=== PATIENT | female | born 1980 | race Caucasian/White ===

== ENCOUNTER 2022-06-27 07:44 | Outpatient (CLI) | payer OTHER, SELFPAY ==
[2022-06-27 10:05] LABS: Albumin* 4.5 g/dL (3.3-5.0)
[2022-06-27 10:06] LABS: Chloride* 110 mmol/L (96-114); Potassium* 4.4 mmol/L (3.6-5.1); Sodium* 140 mmol/L (135-149)
[2022-06-27 10:08] LABS: Aspartate Amino Transferase* 41 U/L (12-35); Bilirubin Total* 0.3 mg/dL (0.1-1.5); Blood Urea Nitrogen* 15 mg/dL (5-24); Carbon Dioxide* 22 mmol/L (20-32); Cholesterol* 203 mg/dL (90-199); Creatinine* 0.8 mg/dL (0.5-1.5); Estimated Glomerular Filt Rate 94 ml/min; Total Protein* 7.1 g/dL (6.0-8.3)
[2022-06-27 10:09] LABS: Alanine Aminotransferase* 41 U/L (4-35); Alkaline Phosphatase* 58 U/L (40-150); Calcium* 9.4 mg/dL (8.4-10.6); Glucose* 112 mg/dL (60-115); HDL Cholesterol* 51 mg/dL (>=50); LDL Cholesterol Calculated 118 mg/dL (<100); Triglycerides* 168 mg/dL (40-149)
== END 2022-06-27 07:45 | disposition home or self-care (01) ==
PROVIDERS: PCP Family Medicine; Visit Provider Family Medicine
DX: R74.8 Abnormal levels of other serum enzymes (principal); E78.5 Hyperlipidemia, unspecified
CPT/HCPCS: 80053; 80061

== ENCOUNTER 2022-09-11 13:49 | Outpatient (CLI) | payer OTHER, SELFPAY ==
--- NOTE | 2022-09-11 14:00 | CRLHL7_ITS ---
For Patients: As a result of the Century Cures Act, medical imaging exams and procedure reports are released immediately into your electronic medical record. You may view this report before your referring provider. If you have questions, please contact your health care provider. BILATERAL SCREENING MAMMOGRAM WITH COMPUTER-AIDED DETECTION TECHNIQUE: CC and MLO views were obtained. These mammographic images have been obtained using full-field digital technique. These mammographic images were interpreted with the benefit of computer-aided detection. COMPARISON FILM: 11/28/20, 11/26/19. FINDINGS: The breasts are heterogeneously dense, which may obscure small masses. IMPRESSION: There is no radiographic evidence for malignancy. ASSESSMENT: BI-RADS Category 1: Negative RECOMMENDATION: Routine screening mammogram in 1 year. A lay language report of this examination will be provided to the patient. JOE JESUS M.D. Diagnostic/Nuclear Medicine Radiologist [email or web address] [email or web address]:aden Transcribed: 09/12/2022, 2:[address]/Dictated by: Joe Jesus MD @ 09/12/2022 10:01:00 AM (Electronically Signed)
== END 2022-09-11 13:50 | disposition home or self-care (01) ==
LOC: MAMMO 13:50
PROVIDERS: PCP Family Medicine; Visit Provider Family Medicine
DX: Z12.31 Encounter for screening mammogram for malignant neoplasm of breast (principal); R92.2 Inconclusive mammogram
CPT/HCPCS: 77067

== ENCOUNTER 2023-07-30 08:15 | Outpatient (CLI) | payer OTHER, SELFPAY | END 2023-07-30 08:16 | disposition home or self-care (01) | LOC: NFLDREF 07-31 07:09 | PROVIDERS: PCP Family Medicine; Referring Provider Family Medicine; Visit Provider Family Medicine | DX: E78.5 Hyperlipidemia, unspecified (principal) | CPT/HCPCS: 80053; 80061 ==

== ENCOUNTER 2024-02-04 15:44 | Outpatient (CLI) | payer OTHER, SELFPAY ==
--- OUTSIDE RECORDS SUMMARY | 2024-02-04 15:46 | XMS_ITS | Clinical Summary ---
Author Organization [facility] Address [place], [place] [address] Care Team Providers Care Ship Scraper Name Role Phone Josiane Wilson MD Primary Care Provider + Allergies No known active allergies Medications No known medications Social History Tobacco Use Types Packs/Day Years Used Date Smoking Tobacco: Never Sex and Gender Information Value Date Recorded Sex Assigned at Not on file Gender Identity Not on file Sexual Orientation Not on file Obstetrics History Last Filed Vital Signs Vital Sign Reading Time Taken Comments Blood Pressure 96/62 11/06/2016 2:47 PM CDT Pulse 73 11/06/2016 2:47 PM CDT Temperature - - Respiratory Rate - - Oxygen Saturation 97% 11/06/2016 2:47 PM CDT Inhaled Oxygen Concentration - - Weight 70.9 kg (156 lb 6.4 oz) 11/06/2016 2:47 P M CDT Height - - Body Mass Index - - Plan of Treatment Health Maintenance Due Date Last Done Comments Tdap 1990 Depression screening for age 12+ 1991 HIV for age 15-65 1994 BMI (ht and wt on same day) for age 18+ 1997 Hepatitis C screening for age 18-79 1997 Tetanus booster 1999 COVID-19 vaccine series (2022- season) 2024 Influenza for age 9-49 01/19/2024 Pap test for age 21-65 06/27/2025 3, 06/27/2022, 11/02/2016, Additional history exists Pneumococcal series for age 6-64 Aged Out No longer eligible based on patient's age to complete this topic Procedures Procedure Name Priority Date/Time Associated Diagnosis Comments HPV HIGH RISK Routine 06/27/2022 12:00 PM PRN OCCUPATIONAL THERAPIST from Last 3 Months or Most Recently Relevant to Health Maintenance Results * HPV HIGH RISK (06/27/2022 12:00 PM PRN OCCUPATIONAL THERAPIST) TYPE 16 Negative Negative 06/29/2022 3:12 PM PRN OCCUPATIONAL THERAPIST [facility] TYPE 18 Negative Negative 06/29/2022 3:12 PM PRN OCCUPATIONAL THERAPIST [facility] OTHER HIGH RISK TYPES Negative Negative 06/29/2022 3:12 PM PRN OCCUPATIONAL THERAPIST [facility] Other (Cervical/Vagina l) 06/27/2022 12:00 PM PRN OCCUPATIONAL THERAPIST 06/27/2022 6:08 PM PRN OCCUPATIONAL THERAPIST Narrative [facility] - 06/29/2022 3:12 PM PRN OCCUPATIONAL THERAPIST HPV types 16, 18, 31, 33, 35, 39, 45, 51, 52, 56, 58, 59, 66 and 68 DNA were undetectable or below the pre-set threshold. Methodology: Juan Diego Vadim 4800 HPV Test Josiane Wilson MD MICROBIOLOGY [facility] [address] [place] [address], from Last 3 Months or Most Recently Relevant to Health Maintenance Care Teams Ship Scraper Relationship Specialty Start Date End Date Josiane Wilson MD [address] [place] [address] PCP - General Family Practice 11/06/16
--- NOTE | 2024-02-04 16:00 | CRLHL7_ITS ---
For Patients: As a result of the Century Cures Act, medical imaging exams and procedure reports are released immediately into your electronic medical record. You may view this report before your referring provider. If you have questions, please contact your health care provider. BILATERAL DIGITAL SCREENING MAMMOGRAM WITH COMPUTER-AIDED DETECTION AND TOMOSYNTHESIS CLINICAL HISTORY: Routine screening exam. COMPARISON: 09/11/2022, 12/02/2020, 11/28/2020, 11/26/2019. TECHNIQUE: Digital mammogram in CC and MLO projections including computer-aided detection (CAD). Tomosynthesis was used in this interpretation. BREAST COMPOSITION: There are scattered areas of fibroglandular density. FINDINGS: RIGHT Breast: No suspicious findings. LEFT Breast: Focal asymmetric density upper outer quadrant 7 cm from the nipple. IMPRESSION: LEFT breast asymmetry/mass. RECOMMENDATIONS: Additional mammographic views of the LEFT breast including 3D spot compression CC/MLO. LEFT breast ultrasound may also be required. BI-RADS Category 0: Incomplete: Need Additional Imaging Evaluation and/or Prior Mammograms for Comparison The [facility] will contact the patient for follow-up. A lay language report of this examination will be provided to the patient. Dictated by Kade Zimmerman MD @ 02/05/2024 9:08:41 AM jj/Dictated by: Kade Zimmerman MD @ 02/05/2024 9:08:00 AM (Electronically Signed)
== END 2024-02-04 15:45 | disposition home or self-care (01) ==
LOC: MAMMO 15:44
PROVIDERS: PCP Family Medicine; Visit Provider Family Medicine
DX: Z12.31 Encounter for screening mammogram for malignant neoplasm of breast (principal); N63.20 Unspecified lump in the left breast, unspecified quadrant
CPT/HCPCS: 77063; 77067

== ENCOUNTER 2024-02-21 08:34 | Outpatient (CLI) | payer OTHER, SELFPAY ==
--- OUTSIDE RECORDS SUMMARY | 2024-02-21 08:37 | XMS_ITS | Clinical Summary ---
Author Organization [facility] Address [place], [place] [address] Care Team Providers Care Propeller Tester Name Role Phone Josiane Wilson MD Primary [...] 1997 Tetanus booster 1999 COVID-19 vaccine series ( season) 2024 Influenza for age 9-49 01/19/2024 Pap test for age 21-65 06/27/2025 3, 06/27/2022, 11/02/2016, Additional history exists Pneumococcal series for age 6-64 Aged Out No longer eligible based on patient's age to complete this topic Procedures Procedure Name Priority Date/Time Associated Diagnosis Comments HPV HIGH RISK Routine 06/27/2022 12:00 PM STYLIST APPRENTICE from Last 3 Months or Most Recently Relevant to Health Maintenance Results * HPV HIGH RISK (06/27/2022 12:00 PM STYLIST APPRENTICE) TYPE 16 Negative Negative 06/29/2022 3:12 PM STYLIST APPRENTICE [facility] TYPE 18 Negative Negative 06/29/2022 3:12 PM STYLIST APPRENTICE [facility] OTHER HIGH RISK TYPES Negative Negative 06/29/2022 3:12 PM STYLIST APPRENTICE [facility] Other (Cervical/Vagina l) 06/27/2022 12:00 PM STYLIST APPRENTICE 06/27/2022 6:08 PM STYLIST APPRENTICE Narrative [facility] - 06/29/2022 3:12 PM STYLIST APPRENTICE HPV types 16, 18, 31, 33, 35, 39, 45, 51, 52, 56, 58, 59, 66 and 68 DNA were undetectable or below the pre-set threshold. Methodology: Juan Diego Vadim 4800 HPV Test Josiane Wilson MD MICROBIOLOGY [facility] [address] [place] [address], from Last 3 Months or Most Recently Relevant to Health Maintenance Care Teams Propeller Tester Relationship Specialty Start Date End Date Josiane Wilson MD [address] [place] [address] PCP - General Family Practice 11/06/16
--- NOTE | 2024-02-21 08:45 | CRLHL7_ITS ---
For Patients: As a result of the Cures Act, medical imaging exams and procedure reports are released immediately into your electronic medical record. You may view this report before your referring provider. If you have questions, please contact your health care provider. DIGITAL DIAGNOSTIC LEFT MAMMOGRAM USING TOMOSYNTHESIS AND COMPUTER-AIDED DETECTION LEFT BREAST ULTRASOUND CLINICAL HISTORY: LEFT breast mass/asymmetry. COMPARISON: 02/04/2024. TECHNIQUE: Digital LEFT mammogram in two projections. Tomosynthesis and CAD were used in this interpretation. Real-time ultrasound imaging of LEFT breast with imaging documentation. Scanning was performed by both the technologist and the radiologist. BREAST COMPOSITION: There are scattered areas of fibroglandular density. FINDINGS: 3D spot compression CC/MLO LEFT breast mammogram images submitted. Persistent nodular density upper outer quadrant. No architectural distortion. Targeted ultrasound LEFT breast 2 o`clock 7 cm from the nipple performed. Multiple small cysts are present, measuring up to 6 millimeters. No suspicious masses. Fibrocystic changes also present within the lower outer quadrant. IMPRESSION: Benign fibrocystic changes LEFT breast. No suspicious findings. RECOMMENDATIONS: Routine annual BILATERAL screening mammography. Results and recommendations discussed with the patient. BI-RADS Category 2: Benign A lay language report of this examination will be provided to the patient. Dictated by Kade Zimmerman MD @ 02/21/2024 10:21:36 AM /Dictated by: Kade Zimmerman MD @ 02/21/2024 10:21:00 AM (Electronically Signed)
--- NOTE | 2024-02-21 09:15 | CRLHL7_ITS ---
For Patients: As a result of the Cures Act, medical imaging exams and procedure reports are released immediately into your electronic medical record. You may view this report before your referring provider. If you have questions, please contact your health care provider. PLEASE SEE DIGITAL DIAGNOSTIC LEFT MAMMOGRAM PERFORMED SAME DAY [email or web address] hi/Dictated by: Kade Zimmerman MD @ 02/21/2024 10:21:00 AM (Electronically Signed)
== END 2024-02-21 08:35 | disposition home or self-care (01) ==
PROVIDERS: PCP Family Medicine; Visit Provider Family Medicine
DX: N63.20 Unspecified lump in the left breast, unspecified quadrant (principal); N60.02 Solitary cyst of left breast; R92.8 Other abnormal and inconclusive findings on diagnostic imaging of breast
CPT/HCPCS: 76642; 77065; G0279

== ENCOUNTER 2024-10-15 08:48 | Outpatient (CLI) | payer OTHER, SELFPAY ==
--- NOTE | 2024-10-15 10:11 | P.ANES_ITS ---
Anesthesia Charges Start Date/Time Anesthesia Start Date: 10/15/24 Anesthesia Start Time: 09:49 Stop Date/Time Anesthesia Stop Date: 10/15/24 Anesthesia Stop Time: 10:10 Coding CPT Codes CPT Codes: ISAAC LWR INTST SCR COLSC - 47487 ([id number]) P2 - PATIENT W/MILD SYST DISEASE, QX - OUTREACH MANAGER SVC W/ MD MED DIRECTION, QK - ROAD DESIGN ENGINEER 2-4 CNCRNT ANES PROC
--- NOTE | 2024-10-15 10:11 | W.ANESCHARGE ---
Anesthesia Charges Start Date/Time Anesthesia Start Date: 10/15/24 Anesthesia Start Time: 09:49 Stop Date/Time Anesthesia Stop Date: 10/15/24 Anesthesia Stop Time: 10:10 Coding CPT Codes CPT Codes: ISAAC LWR INTST SCR COLSC - 54098 ([id number]) P2 - PATIENT W/MILD SYST DISEASE, QX - [employer] ED TEACHER SVC W/ MD MED DIRECTION, QK - TOWN JUSTICE 2-4 CNCRNT ANES PROC
--- NOTE | 2024-10-15 10:22 | P.ANES_ITS ---
Anesthesia Charges Start Date/Time Anesthesia Start Date: 10/15/24 Anesthesia Start Time: 09:49 Stop Date/Time Anesthesia Stop Date: 10/15/24 Anesthesia Stop Time: 10:10 Coding CPT Codes CPT Codes: ANES LWR INTST SCR COLSC - 42003 ([id number]) P2 - PATIENT W/MILD SYST DISEASE, QK - PATIENT ACCESS MANAGER 2-4 CNCRNT ANES PROC, QX - STOCK PARTS FABRICATOR SVC W/ MD MED DIRECTION
--- NOTE | 2024-10-15 10:22 | W.ANESCHARGE ---
Anesthesia Charges Start Date/Time Anesthesia Start Date: 10/15/24 Anesthesia Start Time: 09:49 Stop Date/Time Anesthesia Stop Date: 10/15/24 Anesthesia Stop Time: 10:10 Coding CPT Codes CPT Codes: ANES LWR INTST SCR COLSC - 76349 ([id number]) P2 - PATIENT W/MILD SYST DISEASE, QK - FOOT CUTTER 2-4 CNCRNT ANES PROC, QX - BRASS POLISHER SVC W/ MD MED DIRECTION
== END 2024-10-15 08:49 | disposition home or self-care (01) ==
LOC: OP CLINIC 08:48
PROVIDERS: PCP Family Medicine; Visit Provider Surgery
DX: Z12.11 Encounter for screening for malignant neoplasm of colon (principal)
CPT/HCPCS: 00812; 45378; J2704

== ENCOUNTER 2025-02-04 13:45 | Outpatient (CLI) | payer OTHER, SELFPAY ==
--- NOTE | 2025-02-04 14:00 | CRLHL7_ITS ---
For Patients: As a result of the Century Cures Act, medical imaging exams and procedure reports are released immediately into your electronic medical record. You may view this report before your referring provider. If you have questions, please contact your health care provider. INDICATION: BILATERAL SCREENING MAMMOGRAM, ASYMPTOMATIC 44 Y/O FEMALE COMPARISON: 02/21/2024, 02/04/2024, 09/11/2022 TECHNIQUE: Digital mammogram in CC and MLO projections including computer-aided detection (CAD) and tomosynthesis. BREAST COMPOSITION: The breasts are heterogeneously dense, which may obscure small masses. FINDINGS: No suspicious findings. ASSESSMENT: BI-RADS 1 Negative RECOMMENDATION: Annual screening mammogram. A lay language report of this examination will be provided to the patient. Dictated by: Kade Zimmerman MD @ 02/05/2025 10:17:13 (Electronically Signed)
== END 2025-02-04 13:46 | disposition home or self-care (01) ==
LOC: MAMMO 13:45
PROVIDERS: PCP Family Medicine; Visit Provider Physician Assistant
DX: Z12.31 Encounter for screening mammogram for malignant neoplasm of breast (principal); R92.333 Mammographic heterogeneous density, bilateral breasts
CPT/HCPCS: 77063; 77067